=== PATIENT | male | born 1965 | race Caucasian/White ===

== ENCOUNTER 2017-10-05 17:12 | Emergency (ER) | payer SELFPAY ==
[~2017-10-05] VITALS: Ht 170.2 cm; Wt 110.0 kg
[2017-10-05 17:14] VITALS: BP 167/97
[2017-10-05] MEDS ORDERED: TETANUS, DIPHTHERIA, PERTUSSIS VAC/PF 0.5ML (>7YR OLD) IM ONE (18:00)
== END 2017-10-05 19:04 | disposition left against medical advice (07) ==
LOC: ER 18:02
DX: S01.91XA Laceration without foreign body of unspecified part of head, initial encounter (principal); E11.9 Type 2 diabetes mellitus without complications; F20.9 Schizophrenia, unspecified; F10.20 Alcohol dependence, uncomplicated; F12.10 Cannabis abuse, uncomplicated; Y08.89XA Assault by other specified means, initial encounter; Y93.89 Activity, other specified; Y92.89 Other specified places as the place of occurrence of the external cause; Y99.8 Other external cause status
CPT/HCPCS: 99283; Z7610

== ENCOUNTER 2017-10-05 23:09 | Emergency (ER) | payer SELFPAY ==
[~2017-10-05] VITALS: Ht 172.7 cm; Wt 92.0 kg
[2017-10-05 23:28] VITALS: BP 116/73
== END 2017-10-06 00:27 | disposition left against medical advice (07) ==
LOC: ER 23:09
DX: R51 Headache (principal); Y09 Assault by unspecified means; Z53.21 Procedure and treatment not carried out due to patient leaving prior to being seen by health care provider

== ENCOUNTER 2017-10-06 02:41 | Emergency (ER) | payer SELFPAY ==
[~2017-10-06] VITALS: Ht 175.3 cm; Wt 105.0 kg
[2017-10-06] MEDS ORDERED: SODIUM CHLORIDE 0.9% 1,000 ML IV ONE (06:30)
[2017-10-06] MEDS ORDERED: BACITRACIN ZINC OINT UDPKT TOP ONE (06:30)
[2017-10-06 06:50] LABS: BASOPHILS % 0.6 % (0.0-2.0); EOSINOPHILS % 0.2 % (0.0-5.0); HEMATOCRIT. 34.7 % (42.0-52.0); HEMOGLOBIN. 11.8 g/dL (14.0-18.0); LYMPHOCYTES % 15.7 % (20.0-50.0); MEAN CORPUSCULAR HEMOGLOBIN 28.7 pg (28.0-32.0); MEAN CORPUSCULAR VOLUME 84.4 fL (80.0-94.0); MEAN PLATELET VOLUME 6.5 fl (7.4-10.4); MONOCYTES % 5.7 % (2.0-8.0); NEUTROPHILS % 77.8 % (40.0-76.0); PLATELET 296 x1000/uL (130-400); RED BLOOD CELL COUNT 4.11 mill/uL (4.7-6.1); RED CELL DISTRIBUTION WIDTH 13.5 % (11.6-14.6)
[2017-10-06 06:57] LABS: CHLORIDE 108 mEq/L (98-107)
[2017-10-06 07:00] LABS: ETHANOL BLOOD 98 mg/dL
[2017-10-06 07:42] VITALS: BP 132/84
== END 2017-10-06 08:07 | disposition home or self-care (01) ==
LOC: ER 02:41
DX: S01.00XA Unspecified open wound of scalp, initial encounter (principal); F10.20 Alcohol dependence, uncomplicated; E11.9 Type 2 diabetes mellitus without complications; Y08.89XA Assault by other specified means, initial encounter; Y93.89 Activity, other specified; Y92.89 Other specified places as the place of occurrence of the external cause; Y99.8 Other external cause status; Y90.4 Blood alcohol level of 80-99 mg/100 ml
CPT/HCPCS: 36415; 80048; 85025; 99284; G0482; J7030; Z7610